=== PATIENT | male | born 1985 | race Caucasian/White ===

== ENCOUNTER 2016-12-26 20:50 | Emergency (ER) | payer OTHER ==
[~2016-12-26] VITALS: Ht 170.2 cm; Wt 61.4 kg
[2016-12-26 21:07] VITALS: BP 118/72; PULSE 80; RESP 22; O2SAT 100
[2016-12-26] MEDS ORDERED: LORazepam 1 mg Tablet PO ONE (21:40)
[2016-12-26 21:56] LABS: BASOPHILS % (AUTO) 0.9 % (0-3); EOSINOPHILS % (AUTO) 6.5 % (0-5); MONOCYTES % (AUTO) 11.7 % (4-12); Mean Corpuscular Hemoglobin 21.3 pg (27.0-35.0); Mean Corpuscular Volume 71.1 fL (81-100); NEUTROPHILS % (AUTO) 64.9 % (40-74); Platelet Count 525 bil/L (150-400)
--- NOTE | 2016-12-26 21:57 | ED.REPORT ---
HPI-Psychiatric Illness Date of Service Dec 26, 2016 ED Provider: Yeison Patten DO The patient is a 31 yo male with PTSD, depression, and anxiety who is brought to the ED by police for suicidal/homocidal ideation. He was at the Crisis Center and refused to follow the rules as well as being difficult. The police was called to ask him to leave. Patient requested a ride to the bus stop, and while he was in the car with the police, he expressed both suicidal and homocidal ideation. He denies any specific plan or mean to carry the thoughts, but would like to go to the hospital for help. On arrival to the ED, patient states that he just feels very frustrated and irritated, and would like psychiatric help. He is only on Hydrozyxine for the anxiety, but it has not been working very well. He has a doctor in [place] but has not seen a psychiatrist. He reports some sleeping issues and stress, but admits to normal energy level and appetite. He denies visual/auditory hallucinations, delusions, psychosis, or sahil. He lives with his family in [place]. Patient admits to suicidal/homocidal ideation 6 months ago, but no suicidal attempt in the past. No previous psych admission. Patient denies any physical complaint. Nursing Notes Stated Complaint: MENTAL HEALTH Chief Complaint: Psychiatric Complaint Nursing Notes Reviewed: Yes Allergies: Coded Allergies: No Known Allergies (Unverified , 12/26/16) General Time Seen by MD: 21:15 Chief Complaint Depressed, Homicidal ideation, Suicidal ideation Hx Obtained From: Patient, Police Onset Occurred: Just prior to arrival Context of Onset: Marijuana use Symptom Duration: Since onset Progression Since Onset: Unchanged Severity: Current: No pain currently Associated with: Reports: Agitation, Anxiety, Depression, Denies: Delusions, Fever, Illicit drug use, Incoherence, Incontinence, Loss of appetite, Paranoia, Violence Pertinent Negative: Pt denies other symptoms Pertinent Negative: Exacerbated by nothing, Relieved by nothing Related History: Reports: Anxiety, Depression, Denies: Decreased sleep, Illicit drug use, Prior homicide attempt(s), Prior suicide attempt(s), Schizophrenia Recent Healthcare: No recent doctor visit, No recent hospitalization Similar Sx Previous: Yes Risk-Psychiatric Illness Suicide Risk Stratification Suicide Risk Factors - Adult: No: Access to firearms, Alcohol use, Close associate suicide, Family Hx of Suicide, Previous attempt, Prior psych admission RF Statements: No risk factors Past Medical History Past Medical History None Past Surgical History None Family History Denies Social History Alcohol Use: Denies alcohol use Drug Use: THC Other Social History: Lives with parents Ambulatory Status Independent Review of Systems Basic Review of Systems Eyes: Vision NL, No discharge ENT: Hearing NL, No pain, No nasal congestion, No pharyngeal pain : No dysuria, No frequency Musculoskeletal: No extremity swelling, No extremity pain, Full range of motion , Joints NL Hematologic: No bleeding, No bruising Endocrine: No cold intolerance, No heat intolerance, No weight gain, No weight loss Allergy / Immune: No allergy Psychiatric: Reports: Agitation, Anxiety, Depression, Homicidal ideation, Stress, Suicidal ideation, Denies: Confusion, Delusional, Hallucinations, auditory, Hallucinations, visual, Hostile, Insomnia Complete sys rev & neg: except as marked. Physical Exam Initial Vital Signs Vital Signs (First) Date Time Temp Pulse Resp B/P Pulse Ox O2 Delivery O2 Flow Rate FiO2 12/26/16 21:07 36.4 80 22 118/72 100 Room Air Initial VS: Reviewed, Vital signs normal Head / Eyes: Atraumatic, Normocephalic, PERRL ENT: Mucous membranes moist (poor dentition), Conjunctiva normal, No scleral icterus Neck: Supple, Non-tender, Full range of motion Respiratory: Breath sounds normal, Clear to auscultation, No respiratory distress Cardiovascular: Regular rate & rhythm, Heart sounds normal, Intact distal pulses Abdomen / GI: Soft, Non-tender, No guarding, No rebound, No distention Back: No CVA tenderness Lymphatic: No lymphadenopathy Extremities: Vascular intact, Neuro intact, No swelling, No tenderness Skin: Warm, Dry, No cyanosis Abnormal Mood/Affect: Positive: Anxious, Depressed, Irritable, Labile Abnormal Thinking / Perception: Positive: Homicidal, no plan, Insight abnormal , Judgment abnormal, Suicidal, no plan, Tangential thinking, Negative: Delusions - grandeur, Delusions - paranoid, Hallucinations, auditory, Hallucinations, visual Poor eye contact Interpretation & Diagnostics Lab Results Interpretation Result Diagram: 12/26/16214612/26/162146 Test 12/26/16 21:29 12/26/16 21:47 Hold Urine Received (Received) White Blood Count 11.3th/mm3 (3.8-10.1) Red Blood Count 4.64mil/mm3 (4.40-5.80) Hemoglobin 9.9g/dL (13.8-17.2) Hematocrit 33.0% (41.0-50.0) Mean Corpuscular Volume 71.1fL (81-100) Mean Corpuscular Hemoglobin 21.3pg (27.0-35.0) Mean Corpuscular Hemoglobin Concent 30.0% (32.0-37.0) Red Cell Distribution Width 19.1% (12.3-15.4) Platelet Count 525bil/L (150-400) Neutrophils (%) (Auto) 64.9% (40-74) Lymphocytes (%) (Auto) 15.8% (14-46) Monocytes (%) (Auto) 11.7% (4-12) Eosinophils (%) (Auto) 6.5% (0-5) Basophils (%) (Auto) 0.9% (0-3) Band Neutrophils % 0% (1-5) Sodium Level 137mEq/L (134-144) Potassium Level 4.0mEq/L (3.5-5.2) Chloride Level 101mEq/L (97-108) Carbon Dioxide Level 24mmol/L (18-29) Blood Urea Nitrogen 20mg/dL (6-20) Creatinine 0.75mg/dL (0.76-1.27) Estimat Glomerular Filtration Rate 131mL/min (>59) Glucose Level 83mg/dL (60-99) Calcium Level 9.8mg/dL (8.5-10.1) Total Bilirubin 0.2mg/dL (0.0-1.2) Aspartate Amino Transf (AST/SGOT) 14U/L (0-50) Alanine Aminotransferase (ALT/SGPT) 12U/L (0-44) Alkaline Phosphatase 83U/L (25-150) Total Protein 6.9g/dL (6.4-8.4) Albumin 3.8g/dL (3.4-5.0) Thyroid Stimulating Hormone (TSH) 2.390uIU/mL (0.450-4.500) Re-Eval/Medical Decision Med Decision/Clinical Course 31 yo male with PTSD, depression, and anxiety who is brought to the ED by police for suicidal/homocidal ideation tonight. He was asked to leave the Crisis Center for being difficult. As patient was escorted to the bus station by the police, he expressed suicidal and homocidal ideations without a specific plan. He voluntarily asked for psychiatric help, thus he was taken to the hospital. We consulted with our addiction social worker, who is unable to evaluate the patient because it is at the end of her shift. Therefore, patient will be observed in the ER overnight and to be evaluated by SW in the morning. Patient agrees with the plan. He was given a dose of Ativan 1mg PO for anxiety. Counseled Regarding: Diagnosis, Lab results, Need for follow-up Discharge & Departure Shift Change Sign-Out Patient Care Transferred: Yes Discussed Complaint(s): Yes Laboratory Evaluation: Back, reviewed by me Response to Therapy: Discussed Impression: Primary Impression: Suicidal ideations Discharge Condition All VS Reviewed: Yes Condition: Stable Referrals: NOPCP (PCP) Attending Statement Active suicidal ideations without a plan. He is here voluntarily. Consulted with our addiction social worker. She is unable to evaluate in place before she has to be off shift. As such we will observe the emergency department overnight. I discussed this with this gentleman and he concurs. I performed a history and physical examination and review the note as written above. Miller Ugalde DO Dec 26, 2016 21:35 Yeison Patten DO Dec 26, 2016 23:44
[2016-12-27 00:55] VITALS: BP 108/60; PULSE 86; RESP 18; O2SAT 100
[2016-12-27 06:25] VITALS: BP 103/65; PULSE 81; RESP 16; O2SAT 100
[2016-12-27 07:02] VITALS: BP 109/64; PULSE 77; RESP 17; O2SAT 99
[2016-12-27] MEDS ORDERED: LORazepam 0.5 mg Tablet PO ONE ×2 (08:40→11:15)
[2016-12-27] MEDS ORDERED: hydrOXYzine Pamoate 25 mg Capsule PO ONE (11:15)
[2016-12-27] MEDS ORDERED: HYDR-656 PO (11:21)
[2016-12-27 11:53] VITALS: BP 113/70; PULSE 101; RESP 14; O2SAT 99
== END 2016-12-27 12:14 | disposition home or self-care (01) ==
LOC: SED 20:50
DX: R45.851 Suicidal ideations (principal); F43.10 Post-traumatic stress disorder, unspecified; F32.9 Major depressive disorder, single episode, unspecified; F41.9 Anxiety disorder, unspecified; Z59.0 Homelessness
CPT/HCPCS: 36415; 80053; 81002; 82075; 84443; 85025; 90791; 99284; Q0177

== ENCOUNTER 2017-01-19 08:15 | Emergency (ER) | payer OTHER ==
[~2017-01-19] VITALS: Ht 170.2 cm; Wt 61.4 kg
[2017-01-19 08:15] VITALS: BP_SYST 115; BP_SYST 118; BP_DIAS 101; BP_DIAS 62; PULSE 73; RESP 20; O2SAT 100
[~2017-01-19 08:15] MED LIST: HYDR-656 PO
--- NOTE | 2017-01-19 08:21 | ED.REPORT ---
HPI-Abd Pain M Under 40 Date of Service Jan 19, 2017 ED Provider: Nitin Serrato DO The pt is a 31 y/o male w/ a hx of a hiatal hernias and ulcers, bipolar disorder , and anxiety presenting to the ED via EMS due to two days of upper abdominal pain. He is also experiencing nausea, dizziness, and black tarry stools. The pt has had black tarry stools for the last two days but "today being the main one ". Denies vomiting. He also wants to discuss his mental health issues. The pt has not taken any of his medications for the last 5 days. He describes being "upset". Was seen on 07/02 for suicidal ideations. Nursing Notes Stated Complaint: ABDOMINAL PAIN Chief Complaint: Male Abdominal Pain Nursing Notes Reviewed: Yes Allergies: Coded Allergies: No Known Allergies (Unverified , 01/19/17) Scheduled Ferrous Sulfate (Ferrous Sulfate) 325 Mg Tablet 325 MG PO DAILY Hydroxyzine HCl (HydrOXYzine Hcl) 50 Mg Tablet 50 MG PO Q4H Mirtazapine (Mirtazapine) 15 Mg Tablet 30 MG PO HS Ondansetron (Ondansetron) 4 Mg Tablet 4 MG PO Q8H Pantoprazole DR (Pantoprazole DR) 40 Mg Tablet.dr 40 MG PO DAILY Sucralfate Susp (Carafate Susp) 1 Gm/10 Ml Oral.susp 1 GM PO QID General Time Seen by MD: 08:19 Chief Complaint Abdominal pain Hx Obtained From: Patient Arrived By: Ambulance Sudden in Onset?: Yes Symptom Duration: 2 days Location: : Abdomen upper Recent Healthcare: No recent hospitalization, Recent doctor visit Similar Sx Previous: Yes Past Medical History Past Medical History Hiatal hernias Ulcers Past Surgical History None Family History Denies Smoking History Never Smoker Social History Alcohol Use: Denies alcohol use Drug Use: THC Other Social History: Lives with parents Ambulatory Status Independent Review of Systems GI: Reports: Abdominal pain, Bloody/tarry stool, Nausea, Denies: Vomiting Neurologic: Reports: Dizziness Physical Exam Initial Vital Signs Vital Signs (First) Date Time Temp Pulse Resp B/P Pulse Ox O2 Delivery O2 Flow Rate FiO2 01/19/17 08:15 37.1 73 20 115/62 100 Room Air Initial VS: Reviewed General/Constitutional: Awake, Alert Respiratory / Chest: Atraumatic, Breath sounds NL Cardiovascular: Heart rate NL, Regular rhythm, Heart sounds NL Abdomen: Atraumatic, Soft, Non-tender Back: Atraumatic, Full range of motion Head / Eyes: Atraumatic, Normocephalic Neurologic: Oriented X3, Speech NL Upper Extremity / MS: Atraumatic, Full range of motion Lower Extremity / Pelvis / MS: Atraumatic, Full range of motion Skin: Atraumatic, Color NL, No rash, Warm, Dry Psychiatric: Not suicidal, Not homicidal Paranoid Interpretation & Diagnostics Lab Results Interpretation Result Diagram: 01/19/17 1020 01/19/17 0851 Test 01/19/17 08:51 01/19/17 09:08 01/19/17 10:05 01/19/17 10:20 White Blood Count 7.3th/mm3 (3.8-10.1) Red Blood Count 4.50mil/mm3 (4.40-5.80) Mean Corpuscular Volume 72.0fL (81-100) Mean Corpuscular Hemoglobin 22.4pg (27.0-35.0) Mean Corpuscular Hemoglobin Concent 31.2% (32.0-37.0) Red Cell Distribution Width 22.0% (12.3-15.4) Platelet Count 375bil/L (150-400) Neutrophils (%) (Auto) 71.5% (40-74) Lymphocytes (%) (Auto) 16.4% (14-46) Monocytes (%) (Auto) 7.5% (4-12) Eosinophils (%) (Auto) 3.8% (0-5) Basophils (%) (Auto) 0.5% (0-3) Sodium Level 138mEq/L (134-144) Potassium Level 3.8mEq/L (3.5-5.2) Chloride Level 101mEq/L (97-108) Carbon Dioxide Level 22mmol/L (18-29) Blood Urea Nitrogen 12mg/dL (6-20) Creatinine 0.70mg/dL (0.76-1.27) Estimat Glomerular Filtration Rate 142mL/min (>59) Glucose Level 107mg/dL (60-99) Calcium Level 9.4mg/dL (8.5-10.1) Total Bilirubin 0.2mg/dL (0.0-1.2) Aspartate Amino Transf (AST/SGOT) 31U/L (0-50) Alanine Aminotransferase (ALT/SGPT) 15U/L (0-44) Alkaline Phosphatase 72U/L (25-150) Total Protein 6.9g/dL (6.4-8.4) Albumin 3.8g/dL (3.4-5.0) Prothrombin Time 10.2sec (8.1-12.5) Prothromb Time International Ratio 0.95ratio Hold Urine Received (Received) Hemoglobin 9.8g/dL (13.8-17.2) Hematocrit 31.4% (41.0-50.0) Re-Eval/Medical Decision Med Decision/Clinical Course No evidence of clinically significant GI bleeding. Patient declined a rectal exam, serial hemoglobins are stable, normal BUN to creatinine ratio, normal vital signs. The patient did however appear to have decompensated mental illness, he continued to be severely paranoid, he became verbally threatening and squared off on more than one occasion. He was given IV Haldol, Ativan, Benadryl space out over time in order to help manage these symptoms. The patient has been resting quietly since. Recommend mental health evaluation once the patient has awoken. Re-Evaluation/Progress #1: Time of Eval: 09:50 Re-Evaluation/Progress Note: Pt left room without his shirt on. He appeared visually upset, squared off as about to start a fight, and stated that eveyone in the ER is rude, nasty, and disgusting. He also refused a rectal exam. Re-Evaluation/Progress #2: Time of Eval: 12:00 Re-Evaluation/Progress Note: Pt rechecked and is sleeping soundly. Counseled Regarding: Diagnosis, Lab results, Need for follow-up, When/why to return to ED Patient Discharge & Departure Primary Impression: Epigastric pain Disposition: Home Discharge Condition All VS Reviewed: Yes Condition: Stable [facility]errals: [facility] Care Transferred to: Dr. Mae Care Transferred at: 15:00 Scribe Attestation Portions of this note were transcribed by Jose M Prince. I, Dr. Serrato personally performed the history, physical exam and medical decision-making; I reviewed and confirmed the accuracy of the information in the transcribed note. Signed by : Stephen Burt, 01/19/17 and 0843. copies to: [facility] Nitin Serrato DO Jan 19, 2017 08:21 Jose M Prince Jan 19, 2017 08:41
[2017-01-19] MEDS ORDERED: 0.9% Sodium Chloride 1,000 ML IV ONE (08:51)
[2017-01-19] MEDS ORDERED: LidocaineVisc 2%:Antacid 1:1 10 mL Syringe PO ONE (08:55)
[2017-01-19] MEDS ORDERED: Famotidine 10 mg/mL 2 mL Inj IVPUSH ONE (08:55)
[2017-01-19] MEDS ORDERED: Haloperidol 5 mg/mL Inj IVPUSH ONE (08:55)
[2017-01-19] MEDS ORDERED: Ondansetron 2 mg/mL 2 mL Inj IVPUSH PRN (08:55)
[2017-01-19 09:06] LABS: BASOPHILS % (AUTO) 0.5 % (0-3); EOSINOPHILS % (AUTO) 3.8 % (0-5); MONOCYTES % (AUTO) 7.5 % (4-12); Mean Corpuscular Hemoglobin 22.4 pg (27.0-35.0); NEUTROPHILS % (AUTO) 71.5 % (40-74); Platelet Count 375 bil/L (150-400)
[2017-01-19 09:33] LABS: INR 0.95 ratio
[2017-01-19] MEDS ORDERED: PANT20T PO (10:04)
[2017-01-19] MEDS ORDERED: haldol PO (10:04)
[2017-01-19] MEDS ORDERED: IRON15TA3 PO (10:04)
[2017-01-19] MEDS ORDERED: PANT40TA3 PO ×2 (10:42→17:07)
[2017-01-19] MEDS ORDERED: FERR-83 PO (10:42)
[2017-01-19] MEDS ORDERED: HYDR50TA76 PO (10:42)
[2017-01-19] MEDS ORDERED: SUCR1ORA2 PO (10:42)
[2017-01-19] MEDS ORDERED: ONDA-53 PO (10:42)
[2017-01-19] MEDS ORDERED: MIRT15TA6 PO (10:42)
[2017-01-19 10:50] VITALS: BP 104/74; PULSE 74; RESP 12; O2SAT 98
[2017-01-19 12:39] VITALS: BP 134/59; PULSE 93; RESP 15; O2SAT 100
[2017-01-19 15:15] VITALS: BP 105/74; PULSE 87; RESP 16; O2SAT 100
[2017-01-19 16:18] VITALS: BP 99/51; PULSE 80; O2SAT 100
[2017-01-19] MEDS ORDERED: MIRT30TA6 PO (17:07)
[2017-01-19 17:14] VITALS: BP 97/59; PULSE 74; O2SAT 98
== END 2017-01-19 17:15 | disposition home or self-care (01) ==
LOC: SED 08:15
DX: R10.13 Epigastric pain (principal); R11.0 Nausea; R42 Dizziness and giddiness; F41.8 Other specified anxiety disorders
CPT/HCPCS: 36415; 80053; 81002; 82075; 85014; 85018; 85025; 85610; 86850; 96361; 96374; 96375; 99285; J1200; J1630; J2060; J2405; J7030

== ENCOUNTER 2017-03-15 08:57 | Emergency (ER) | payer OTHER ==
[~2017-03-15] VITALS: Ht 170.2 cm; Wt 62.0 kg
[~2017-03-15 08:57] MED LIST changes: +FERR-83 PO; -HYDR-656 PO; +HYDR50TA76 PO; +MIRT15TA6 PO; +MIRT30TA6 PO; +ONDA-53 PO; +PANT40TA3 PO; +SUCR1ORA2 PO
[2017-03-15 09:05] VITALS: BP 106/72; PULSE 79; PULSE 9; RESP 16; O2SAT 98
--- NOTE | 2017-03-15 09:07 | ED.REPORT ---
HPI-Psychiatric Illness Date of Service Mar 15, 2017 ED Provider: Germain Loyola MD The pt is a 31 y/o male w/ a hx of PTSD, alcohol syndrome, schizophrenia depression, bipolar disorder and anxiety presenting to the ED via law enforcement due to suicidal ideations. He is also a level 3 sex offender and was [facility]. He states that he has a lot of problems in the head currently and his emotions are getting to him. He was just released from a hospital in [place] 2 days ago but reports lying to the doctors saying he was fine in order to be released. Denies homicidal ideations or hallucinations. Denies recent drug or alcohol use. The pt reports having suicidal ideations which has been getting worse over the last few months with plans to jump off an overpass. The pt was last seen in the ED two and a half months ago for suicidal ideations and two months ago for abdominal pain. According to records the pt lives in [place] but he has brought two large bags of personal belongings with him. He reports taking Seraquel, Depakote, Ativan, and Pertronix for his symptoms but does not feel like they are working. Nursing Notes Stated Complaint: SUICIDAL Chief Complaint: Suicidal ideation Nursing Notes Reviewed: Yes Allergies: Coded Allergies: No Known Allergies (Unverified , 01/19/17) Scheduled Ferrous Sulfate (Ferrous Sulfate) 325 Mg Tablet 325 MG PO DAILY Hydroxyzine HCl (HydrOXYzine Hcl) 50 Mg Tablet 50 MG PO Q4H Mirtazapine (Mirtazapine) 15 Mg Tablet 30 MG PO HS Mirtazapine (Mirtazapine) 30 Mg Tablet 30 MG PO HS Ondansetron (Ondansetron) 4 Mg Tablet 4 MG PO Q8H Pantoprazole DR (Pantoprazole DR) 40 Mg Tablet.dr 40 MG PO DAILY Pantoprazole DR (Pantoprazole DR) 40 Mg Tablet.dr 40 MG PO DAILY Sucralfate Susp (Carafate Susp) 1 Gm/10 Ml Oral.susp 1 GM PO QID General Time Seen by MD: 09:07 Chief Complaint Suicidal ideation Hx Obtained From: Patient Arrived By: Walk-in Onset Occurred: Just prior to arrival Symptom Duration: Since onset Recent Healthcare: Recent doctor visit, Recent hospitalization Similar Sx Previous: Yes Risk-Psychiatric Illness Suicide Risk Stratification Suicide Risk Factors - Adult: No: Access to firearms, Alcohol use, Substance abuse RF Statements: Risk factors reviewed Past Medical History Past Medical History Hiatal hernias Ulcers PTSD Depression alcohol syndrome Bipolar disorder Anxiety Schizophrenia Past Surgical History None Family History Denies Smoking History Never Smoker Social History Level 3 sex offender Alcohol Use: Denies alcohol use Drug Use: THC Other Social History: Lives with parents Ambulatory Status Independent Review of Systems Psychiatric: Reports: Anxiety, Delusional, Suicidal ideation (w/ plan ), Denies: Hallucinations, auditory, Hallucinations, visual, Homicidal ideation Complete sys rev & neg: except as marked. Physical Exam Initial Vital Signs Vital Signs (First) Date Time Temp Pulse Resp B/P Pulse Ox O2 Delivery O2 Flow Rate FiO2 03/15/17 09:05 36.4 79 16 106/72 98 Room Air Initial VS: Reviewed ENT: Mucous membranes moist, Conjunctiva normal, No scleral icterus Neck: Supple, Non-tender, Full range of motion Respiratory: Breath sounds normal, Clear to auscultation, No respiratory distress Cardiovascular: Regular rate & rhythm, Heart sounds normal, Intact distal pulses Extremities: Vascular intact, Neuro intact Skin: Warm, Dry, No cyanosis General/Constitutional: Awake, Alert Neurologic: Oriented X3, No motor deficits Psychiatric: Not homicidal Abnormal Mood/Affect: Positive: Anxious, Fearful, Irritable, Labile, Pressured speech Abnormal Thinking / Perception: Positive: Delusions - paranoid, Insight abnormal, Suicidal, with plan, Negative: Hallucinations, auditory, Hallucinations, visual Head / Eyes: Atraumatic, Normocephalic Interpretation & Diagnostics Lab Results Interpretation Result Diagram: 03/15/17 0944 03/15/17 0944 Test 03/15/17 09:44 White Blood Count 7.5th/mm3 (3.8-10.1) Red Blood Count 4.99mil/mm3 (4.40-5.80) Hemoglobin 12.2g/dL (13.8-17.2) Hematocrit 38.1% (41.0-50.0) Mean Corpuscular Volume 76.4fL (81-100) Mean Corpuscular Hemoglobin 24.4pg (27.0-35.0) Mean Corpuscular Hemoglobin Concent 32.0% (32.0-37.0) Red Cell Distribution Width 23.4% (12.3-15.4) Platelet Count 278bil/L (150-400) Neutrophils (%) (Auto) 74.5% (40-74) Lymphocytes (%) (Auto) 14.7% (14-46) Monocytes (%) (Auto) 8.7% (4-12) Eosinophils (%) (Auto) 0.9% (0-5) Basophils (%) (Auto) 0.7% (0-3) Sodium Level 142mEq/L (134-144) Potassium Level 4.1mEq/L (3.5-5.2) Chloride Level 103mEq/L (97-108) Carbon Dioxide Level 22mmol/L (18-29) Blood Urea Nitrogen 17mg/dL (6-20) Creatinine 0.84mg/dL (0.76-1.27) Estimat Glomerular Filtration Rate 115mL/min (>59) Glucose Level 100mg/dL (60-99) Calcium Level 9.2mg/dL (8.5-10.1) Total Bilirubin 0.2mg/dL (0.0-1.2) Aspartate Amino Transf (AST/SGOT) 39U/L (0-50) Alanine Aminotransferase (ALT/SGPT) 15U/L (0-44) Alkaline Phosphatase 72U/L (25-150) Total Protein 7.0g/dL (6.4-8.4) Albumin 4.1g/dL (3.4-5.0) Thyroid Stimulating Hormone (TSH) 1.680uIU/mL (0.450-4.500) Hold Perez Top Tube Received (Received) Re-Eval/Medical Decision Med Decision/Clinical Course All facilities checked will not accept the patient either because of his sex offender status or because of senses issues. The patient says that if he leaves the department he will kill himself today. Psychiatric consultation requested. Care transferred to Dr. Washington at change of shift. Source of Hx: Old records Re-Evaluation/Progress #1: Time of Eval: 11:54 Re-Evaluation/Progress Note: Rechecked pt who admits to suicidal ideations that have been getting worse over the last 2 months w/ a plan to jump off an overpass. Denies homicidal ideations, or hallucinations. He states that it wouldnt work so good if he was discharged today and would like to be admitted for further help. Re-Evaluation/Progress #2: Time of Eval: 15:01 Re-Evaluation/Progress Note: Pt rechecked. He states that if he is discharged he will kill himself. Re-Evaluation/Progress #3: Time of Eval: 15:39 Re-Evaluation/Progress Note: Pt rechecked and informed him of plan for a psychiatrist to speak to him. Consultation : Referral / Consult Name: Truong Braun MD Consulted With: Psychiatry Call Returned at: 15:30 Mail Clerk Bills: Will see patient Note: Will see the patient before the end of the day Counseled Regarding: Diagnosis, Lab results, Need for admission Discharge & Departure Impression: Primary Impression: Suicidal ideations Discharge Condition All VS Reviewed: Yes Condition: Stable Additional Instructions: Thank for you entrusting us with your care today. You have an appointment with your rn case management, Sivan at 2:00 PM on () at [facility] [address], [phone] Please return to the emergency department if you experience any new or worsening symptoms. Referrals: SKYLER PECK MD (PCP) Care Transferred to: Dr. Willis Care Transferred at: 18:00 Scribe Attestation Portions of this note were transcribed by Jose M Prince. I, Dr. Loyola personally performed the history, physical exam and medical decision-making; I reviewed and confirmed the accuracy of the information in the transcribed note. copies to: SKYLER PECK MD, Kirk H MD Mar 15, 2017 09:07 Jose M Prince Mar 15, 2017 09:24
[2017-03-15] MEDS ORDERED: LORazepam 2 mg Tablet PO ONE (09:25)
[2017-03-15 10:07] LABS: BASOPHILS % (AUTO) 0.7 % (0-3); EOSINOPHILS % (AUTO) 0.9 % (0-5); MONOCYTES % (AUTO) 8.7 % (4-12); Mean Corpuscular Hemoglobin 24.4 pg (27.0-35.0); Mean Corpuscular Volume 76.4 fL (81-100); NEUTROPHILS % (AUTO) 74.5 % (40-74); Platelet Count 278 bil/L (150-400)
[2017-03-15 14:10] VITALS: BP 116/65; PULSE 82; RESP 14; O2SAT 98
[2017-03-15 18:28] VITALS: BP 100/65; PULSE 101; RESP 18; O2SAT 98
[2017-03-15 23:21] VITALS: BP 110/68; PULSE 62; RESP 16; O2SAT 99
[2017-03-16 06:01] VITALS: BP 103/69; PULSE 98; RESP 14; O2SAT 99
[2017-03-16 10:10] VITALS: BP 116/66; PULSE 92; RESP 18; O2SAT 100
[2017-03-16] MEDS ORDERED: Pantoprazole 40 mg ER24 Tablet PO ONE (11:40)
--- NOTE | 2017-03-16 13:59 | CONS ---
[address] [address] CONSULTATION REPORT PATIENT: RACHELLE GOLDBERG : 1985 MR#: [id number] ADMIT: 03/15/2017 JOB ID: [id number] DATE OF SERVICE: 03/16/2017 PSYCHIATRIC CONSULTATION: IDENTIFICATION: The patient is a 31-year-old white male. He is currently homeless. He recently served 10 years of incarceration and has been identified as a level three sexual offender. He has been staying in the [facility]. REASON FOR ADMISSION: Client came to the emergency department complaining of suicidal ideation with a plan to jump off the bridge to kill himself. HISTORY OF PRESENT ILLNESS: I was asked to consult by the emergency department on the patient for suicidal ideation. I met with him for two separate evaluations and reviewed course and records kept by [facility]. I also reviewed his case with social media senior associate, Nida, and with several of the emergency department doctors over the past 48 hours. Client's main issue is homelessness and lack of income. He is becoming so frustrated and sees no way out and is now seeing suicide as a viable option. He is worried that he will walk to the bridge and jump off because he is feeling so frustrated. He describes having bipolar mood disorder and that this has been diagnosed by his outpatient physician. He has been prescribed a combination of Remeron, Depakote and Seroquel for this. He showed no signs of sahil or psychosis. He showed no neurovegetative signs of depression but was very consistent that at this time he is feeling so frustrated and sees no option other than suicide. All the above were made worse by the lack of housing, by poor sleep and by the stress of not having enough money. He is currently presenting with significant emotional liability and mild cognitive impairments. PHYSICAL REVIEW OF SYSTEMS: Client denies difficulty with constitution, cardiac, respiratory, GI or genitourinary systems. He denies medication side effects. PAST MEDICAL HISTORY: MEDICATIONS: 1. Remeron 30 h.s. 2. Depakote 500 h.s. 3. Seroquel 200 h.s. ALLERGIES: None. ILLNESSES: alcohol syndrome. FAMILY MEDICAL HISTORY: Unknown. PAST PSYCHIATRIC HISTORY: Numerous hospitalizations. Client describes being at [facility] and admitted to their psych unit. Client describes being recently admitted to [facility], discharging on March 14 presenting to our unit to our ED on March 15, 2017. PSYCHOSOCIAL: Born in [place], [place]. Stated he dropped out of school in the 11th grade. HISTORY OF TRAUMA: Client denies. DRUG AND ALCOHOL: Client states he uses THC but denies other drug use. LETHALITY: Client states he tried to hang himself earlier this month and that a friend let him down. He stated he was intent on killing himself. He states he is suicidal now. Plans to jump off an overpass onto the freeway. RELATIONSHIP: Single. BAHAI: None. LEGAL: Ten years of incarceration level three sex offender. PHYSICAL EXAMINATION: Vital signs within normal limits. Physical examination reviewed from the ED and essentially normal. LABORATORIES: CBC, electrolytes, thyroid normal. UDS negative. MENTAL STATUS: Client dressed in hospital scrubs. Sitting calmly on his bed. He appeared tense but was well hydrated and well nourished. Behavior was restless and defiant. Attitude was suspicious. Speech: Rapid rate and pressured. Mood dysphoric. Affect congruent, labile. Thought process: Client is able to relate a coherent history. His thought process is concrete. He is able to appreciate simple but not complex abstractions. He did not appear to be responding to internal stimuli. His thought content was significant for themes of suicide and a plan to jump if he is not able to find emotional relief, food and prison. He denied homicidal ideation. He denied auditory hallucinations. He is alert and oriented to person, place and date. His immediate, more short and long-term memory intact. Attention and concentration was mildly impaired. Insight and judgment poor. Impulse control impaired. He is having a difficult time handling impulses of fear, hunger and sadness. Reality testing intact. Competence to handle current stressors is currently being overwhelmed. IMPRESSION: The patient is a 31-year-old male who has been incarcerated and has been categorized as a level three sex offender. Since getting out of [facility], he has had a difficult time establishing work and a living situation. He has burned many of his bridges with his family and currently feels that he is so frustrated with living on the street that he is planning to kill himself rather than continue on. He repeated three times that he was going to jump off the bridge and was unable to participate in any kind of safety planning with myself or the emergency social media senior associate, iNda. No signs of psychosis, sahil or neurovegetative signs of depression. Positive suicidal ideation. Client felt that the combination of Remeron, Depakote and Seroquel has helped him in the past. DIAGNOSIS: AXIS I Depression unspecified, rule out malingering, rule out bipolar mood disorder, depressed with suicidal ideation. AXIS II Antisocial traits. AXIS III alcohol syndrome. AXIS IV Severe. AXIS V Current global assessment of functioning equal to 35. PLAN: 1. Recommend client be continued on medications Remeron 30 h.s., Depakote 500 h.s. and Seroquel 200 h.s. 2. Recommend client followup with [facility] for outpatient medication management and therapy once client is able to safety plan. 3. Would not discharge from the ED until client can participate in safety planning and that he is no longer eminently suicidal. The social media senior associate, Nida, has called for many different hospitals trying to get him a hospital bed. At present, there have been no beds offered and will continue to hold him in the ED and continue to treat him. I will continue to see him on a daily basis.
[2017-03-16 15:06] VITALS: BP 114/69; PULSE 71; RESP 20; O2SAT 96
== END 2017-03-16 16:06 ==
LOC: SED 08:57
DX: R45.851 Suicidal ideations (principal); F43.10 Post-traumatic stress disorder, unspecified; F41.9 Anxiety disorder, unspecified; F25.1 Schizoaffective disorder, depressive type; Z65.3 Problems related to other legal circumstances
CPT/HCPCS: 36415; 80053; 82075; 84443; 85025; 99284; Q0177

== ENCOUNTER 2017-03-28 15:52 | Emergency (ER) | payer MEDICAID, OTHER ==
[~2017-03-28] VITALS: Ht 167.6 cm; Wt 61.4 kg
--- NOTE | 2017-03-28 16:14 | ED.REPORT ---
HPI-Psychiatric Illness Date of Service Mar 28, 2017 ED Provider: Med Rosales MD The patient is a 31 year old male with a history of PTSD, alcohol syndrome, schizophrenia depression, bipolar disorder and anxiety who presents to the ED via [facility] with suicidal ideation that began just prior to arrival. The patient reportedly contacted police stating that he was feeling actively suicidal and homicidal. Per police report, patient was threatening to jump onto the train tracks. He is currently requesting to meet with [facility] for a psych hold and asked to be placed in handcuffs. Patient was recently placed at a Crisis center in [place] for 3 days but left prior to scheduled discharge. Patient was last seen in the ED on 03/15 for suicidal ideation and was discharged in stable condition after suicidal ideation resolved. The patient is a difficult historian. Nursing Notes Stated Complaint: SUICIDAL IDEATION Chief Complaint: Psychiatric Complaint Nursing Notes Reviewed: Yes Allergies: Coded Allergies: No Known Allergies (Unverified , 01/19/17) Scheduled Ferrous Sulfate (Ferrous Sulfate) 325 Mg Tablet 325 MG PO DAILY Hydroxyzine HCl (HydrOXYzine Hcl) 50 Mg Tablet 50 MG PO Q4H Mirtazapine (Mirtazapine) 15 Mg Tablet 30 MG PO HS Mirtazapine (Mirtazapine) 30 Mg Tablet 30 MG PO HS Ondansetron (Ondansetron) 4 Mg Tablet 4 MG PO Q8H Pantoprazole DR (Pantoprazole DR) 40 Mg Tablet.dr 40 MG PO DAILY Pantoprazole DR (Pantoprazole DR) 40 Mg Tablet.dr 40 MG PO DAILY Sucralfate Susp (Carafate Susp) 1 Gm/10 Ml Oral.susp 1 GM PO QID General Time Seen by MD: 16:07 Chief Complaint Suicidal ideation Hx Obtained From: Patient Arrived By: Police Onset Occurred: Just prior to arrival Symptom Duration: Since onset Progression Since Onset: Unchanged Pertinent Negative: Pt denies other symptoms Recent Healthcare: No recent hospitalization, Recent doctor visit Similar Sx Previous: Yes Risk-Psychiatric Illness Suicide Risk Stratification RF Statements: Risk factors reviewed Past Medical History Past Medical History Hiatal hernias Ulcers PTSD Depression alcohol syndrome Bipolar disorder Anxiety Schizophrenia Past Surgical History None reported. Family History Denies Smoking History Never Smoker Social History Level 3 sex offender Alcohol Use: Denies alcohol use Drug Use: THC Other Social History: Lives with parents Ambulatory Status Independent Review of Systems Psychiatric: Reports: Suicidal ideation Complete sys rev & neg: except as marked. Physical Exam Initial Vital Signs Vital Signs (First) Date Time Temp Pulse Resp B/P Pulse Ox O2 Delivery O2 Flow Rate FiO2 03/28/17 16:39 36.8 98 18 100 Room Air 03/28/17 19:00 126/82 Initial VS: Reviewed Extremities: Vascular intact, Neuro intact, No swelling, No tenderness General/Constitutional: Awake, Alert Behavior: Positive: Aggressive, Uncooperative GENERAL: Asking to have handcuffs removed Refuses to provide further HPI Neurologic: Oriented X3, Speech NL, No motor deficits, No sensory deficits Abnormal Thinking / Perception: Positive: Homicidal, no plan (Reported to Police), Suicidal, no plan (Reported to Police) Aggressive behavior and posture Head / Eyes: Atraumatic, Normocephalic Respiratory / Chest: Atraumatic, No respiratory distress Cardiovascular: Peripheral circulation NL, Pulses = bilaterally Abdomen: Atraumatic Skin: Atraumatic, Color NL Neck: Atraumatic, Supple, Full range of motion Back: Atraumatic Interpretation & Diagnostics Lab Results Interpretation Result Diagram: 03/28/17193003/28/171930 Test 03/28/17 19:31 White Blood Count 8.7th/mm3 (3.8-10.1) Red Blood Count 4.81mil/mm3 (4.40-5.80) Hemoglobin 11.5g/dL (13.8-17.2) Hematocrit 36.3% (41.0-50.0) Mean Corpuscular Volume 75.5fL (81-100) Mean Corpuscular Hemoglobin 23.9pg (27.0-35.0) Mean Corpuscular Hemoglobin Concent 31.7% (32.0-37.0) Red Cell Distribution Width 21.1% (12.3-15.4) Platelet Count 405bil/L (150-400) Neutrophils (%) (Auto) 66.4% (40-74) Lymphocytes (%) (Auto) 20.0% (14-46) Monocytes (%) (Auto) 9.2% (4-12) Eosinophils (%) (Auto) 3.5% (0-5) Basophils (%) (Auto) 0.7% (0-3) Sodium Level 140mEq/L (134-144) Potassium Level 4.0mEq/L (3.5-5.2) Chloride Level 102mEq/L (97-108) Carbon Dioxide Level 22mmol/L (18-29) Blood Urea Nitrogen 13mg/dL (6-20) Creatinine 0.82mg/dL (0.76-1.27) Estimat Glomerular Filtration Rate 118mL/min (>59) Glucose Level 91mg/dL (60-99) Calcium Level 9.2mg/dL (8.5-10.1) Total Bilirubin 0.2mg/dL (0.0-1.2) Aspartate Amino Transf (AST/SGOT) 13U/L (0-50) Alanine Aminotransferase (ALT/SGPT) 11U/L (0-44) Alkaline Phosphatase 67U/L (25-150) Total Protein 7.2g/dL (6.4-8.4) Albumin 3.9g/dL (3.4-5.0) Thyroid Stimulating Hormone (TSH) 1.990uIU/mL (0.450-4.500) Hold Perez Top Tube Received (Received) Re-Eval/Medical Decision Med Decision/Clinical Course The patient is a 31 year old male with a history of PTSD, alcohol syndrome, schizophrenia depression, bipolar disorder and anxiety who presents to the ED via [facility] with suicidal ideation that began just prior to arrival. The patient reportedly contacted police stating that he was feeling actively suicidal and homicidal. Per police report, patient was threatening to jump onto the train tracks. Here in the emergency department the patient as somewhat agitated and aggressive. He was repeatedly asking to be removed from handcuffs though when this was done he was noted to become aggressive with staff punching mabry and hitting his head against the window. Therefore we administered Haldol, Benadryl and Ativan intramuscularly with good effect. Laboratory studies were obtained as below: Alcohol negative Urine drug screen negative CBC unremarkable CMP unremarkable TSH within normal limits Patient was seen and evaluated by her emergency department social science professor and reported ongoing suicidal and homicidal ideation. The patient was seen and evaluated by the [facility] and he is placed on psychiatric hold. Due to his status as sex offender it is unlikely that we will be able to find placement for him at a psychiatric facility this evening. At this time, I see no evidence of an acute medical etiology of his behavior today. The patient has been signed out to the oncoming physician for further management. He is stable at time of sign out. Re-Evaluation/Progress #1: Time of Eval: 20:07 Re-Evaluation/Progress Note: Face to face eval. Patient is not in any acute distress. Re-Evaluation/Progress #2: Time of Eval: 22:40 Re-Evaluation/Progress Note: Patient is detained to the ED. After becoming agitated, the patient is given B52. Consultation : Consulted With: student worker Call Returned at: 19:52 Outreach Counselor: Agrees with eval, Agrees with plan Note: I agree with the [facility] plan to consult with DM to discuss treatment plan and potential placement. Counseled Regarding: Diagnosis, Lab results Discharge & Departure Shift Change Sign-Out Patient Care Transferred: Yes Discussed Complaint(s): Yes Laboratory Evaluation: Lab evaluation discussed Additonal Information: Dr. Syed Impression: Primary Impression: Suicidal ideations Additional Impressions: Agitation Combative behavior Homicidal ideation Discharge Condition All VS Reviewed: Yes Condition: Stable Referrals: SKYLER PECK MD (PCP) Care Transferred to: Dr. Syed Care Transferred at: 00:38 Crit Care Except Billable Proc Time Spent: 30-74 minutes Services Performed: Patient management by me, Time spent at bedside, Reviewing test results, Reviewing imaging, Discussing patient care, Documentation in record Critical Care Notes: Management of agitation, combative behavior administration of Haldol/Ativan Scribe Attestation Portions of this note were transcribed by Daniela Magana. I, Dr. Rosales, personally performed the history, physical exam and medical decision-making; I reviewed and confirmed the accuracy of the information in the transcribed note. Signed by: Daniela Magana, 03/28/17. copies to: SKYLER PECK MD, Beck O MD Mar 28, 2017 16:14 DANIELA MAGANA Mar 28, 2017 16:19
[2017-03-28 16:39] VITALS: PULSE 98; RESP 18; O2SAT 100
[2017-03-28 19:00] VITALS: BP 126/82; PULSE 82; RESP 18; O2SAT 98
[2017-03-28 19:42] LABS: BASOPHILS % (AUTO) 0.7 % (0-3); EOSINOPHILS % (AUTO) 3.5 % (0-5); MONOCYTES % (AUTO) 9.2 % (4-12); Mean Corpuscular Hemoglobin 23.9 pg (27.0-35.0); Mean Corpuscular Volume 75.5 fL (81-100); NEUTROPHILS % (AUTO) 66.4 % (40-74); Platelet Count 405 bil/L (150-400)
[2017-03-28] MEDS ORDERED: Haloperidol 5 mg/mL Inj IM PRN (22:45)
[2017-03-29 06:09] VITALS: BP 101/63; PULSE 93; RESP 21; O2SAT 99
[2017-03-29] MEDS ORDERED: MIRT30TA PO (10:05)
[2017-03-29] MEDS ORDERED: DIVA500T14 PO (10:05)
[2017-03-29] MEDS ORDERED: QUET200T PO (10:05)
[2017-03-29] MEDS: Pantoprazole 40 mg ER24 Tablet PO SCH (10:45)
[2017-03-29] MEDS: Sucralfate 1,000 mg Tablet PO SCH ×3 (10:45→17:00)
[2017-03-29 15:00] VITALS: BP 121/65; PULSE 92; O2SAT 100
--- NOTE | 2017-03-29 16:32 | CONS ---
[address] [address] CONSULTATION REPORT PATIENT: RACHELLE GOLDBERG : 1985 MR#: [id number] ADMIT: 03/28/2017 JOB ID: [id number] DATE OF SERVICE: 03/29/2017 EMERGENCY DEPARTMENT PSYCHIATRIC CONSULTATION: IDENTIFICATION: The patient is a 31-year-old white male. He is currently homeless. Had recently been incarcerated for 10 years and has been identified as a level 3 sexual offender. He has been staying in the [facility]. REASON FOR ADMISSION: Client was discharged from [facility] crisis triage on March 28 a.m. and came to [place], called 911 and told the police that he was suicidal/homicidal and was brought to the ED for evaluation. HISTORY OF PRESENT ILLNESS: I recently evaluated the patient on March 15, 2017. Please see my consultation at that time. HISTORY OF PRESENT ILLNESS: I was asked to consult by the emergency department on the patient for suicidal and homicidal ideation. I met with him in a one-to-one session and reviewed course and records kept by [facility]. I also reviewed his case with the emergency department physician and social work team. Client has had multiple different emergency department visits at [facility] in [place], [facility] [place] and [facility]. His main issue is homelessness and lack of income. He becomes so frustrated, sees no way out and sees suicide as a viable option. He was quite angry during my interaction with him because he only wanted to be admitted to our unit. Due to the vulnerability of our clients on the unit, this is not a possibility and he needs to be treated in an emergency department or transferred to another facility. This infuriated him and he stated that he will jump off a bridge if he is let go today. He had been detained on a 72 hour involuntary treatment hold by Department of [facility] for similar statements and behavior. He states he has bipolar disorder but his main diagnosis to me appears to be generalized anxiety disorder and PTSD. He also has borderline personality traits. He had been prescribed Depakote, Remeron and Seroquel but has not been taking any of his medication. He showed no signs of sahil or psychosis during my evaluation. He showed no neurovegetative signs of depression. Rather he was very frustrated and is seeing no other options than suicide. All the above symptoms are made worse by lack of housing, by poor sleep and by not having enough money. He is currently presenting with significant emotional lability and mild cognitive impairments. REVIEW OF SYSTEMS: Client refuses to respond to questions. PAST PSYCHIATRIC HISTORY/MEDICATIONS: The client has been refused all medications since discharge on the . ALLERGIES: None. ILLNESSES: alcohol syndrome per chart review. FAMILY MEDICAL HISTORY: Unknown. PAST PSYCHIATRIC HISTORY: Numerous hospitalizations on inpatient units, [facility] [place], [facility] in [place] and [facility] [place]. He was recently discharged from [facility] crisis triage on March 28 a.m. and was in our ED by March 28 p.m. PSYCHOSOCIAL: Born in [place], [place]. Stated he dropped out of school in the 11th grade. 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 DRUG AND ALCOHOL: Client states he uses THC but nothing else. His urine tox was negative. LETHALITY: Client states he tried to hang himself earlier in the month and that a friend let him down. His description was not very convincing. He stated he was intent on killing himself and states I am suicidal now and he plans to jump off the overpass into the freeway. RELATIONSHIP: Single. MORMON: None. LEGAL HISTORY: Ten years of incarceration level 3 sex offender. PHYSICAL EXAMINATION: Vital signs within normal limits. Normal gait. Normal balance. LABORATORIES: CBC, electrolytes, thyroid normal. UDS negative. MENTAL STATUS: Client sitting on the ground in the doorway of his hospital room. He appeared tense but well hydrated and well nourished. His behavior was restless and defiant. Attitude was suspicious. Speech rapid rate, pressured. Mood dysphoric. Affect congruent and labile. Thought process: Client able to relate a coherent history. Thought process is concrete. He is able to appreciate simple but not complex abstractions. He did not appear to be responding to internal stimuli. His thought content was significant for themes of suicide and a plan to jump if he is not able to find emotional relief, food and snf. He denies homicidal ideation. He denied auditory hallucinations. He refused to participate in orientation, memory or judgment questions. His impulse control appears impaired. Insight and judgment poor. Reality testing intact. Competence to handle current stressors is currently being overwhelmed. IMPRESSION: A 31-year-old white male, who has been incarcerated and categorized as a level 3 sex offender. Since getting out of retirement, he has had a difficult time establishing work, a living situation and a viable social community. He has burned many of his bridges with family due to his impulsive anger outbursts and continues to feel a frustration with living on the streets. He is planning on killing himself rather than remaining homeless. He repeated that he is still significantly feeling suicidal and needs care. No signs of psychosis, sahil or neurovegetative signs of depression. Positive suicidal ideation. Client has felt that the combination of Remeron, Depakote and Seroquel has helped him in the past. DIAGNOSIS: AXIS I Depression, unspecified, rule out malingering, rule out bipolar motor disorder, rule out adjustment disorder with depression, rule out posttraumatic stress disorder. AXIS II Antisocial traits. AXIS III alcohol syndrome. AXIS IV Severe. AXIS V Current global assessment of functioning equal to 35. PLAN: Client is on a 72 hour involuntary treatment hold. Will hold him in the ED until a bed can be made or he can be safely dispoed out. Recommend continue Remeron 30 h.s. and Seroquel 200 t.i.d. Would discontinue Depakote. Recommend client work on developing a safety plan and followup with outpatient mental health. Client did not follow up with any of the appointments we set up for him last time. He did not take any medications. I would not discharge him from the ED until he can participate in safety planning and is no longer suicidal. Our group social worker, Nida, is working on different hospital options as well. Thank you for a very interesting consultation.
[2017-03-29 20:20] VITALS: BP 114/66; PULSE 66; RESP 16; O2SAT 100
[2017-03-30 07:01] VITALS: BP 113/68; PULSE 74; RESP 18; O2SAT 99
[2017-03-30] MEDS: Sucralfate 1,000 mg Tablet PO SCH ×3 (07:30→17:00)
[2017-03-30 13:12] VITALS: BP 140/78; PULSE 90; RESP 20; O2SAT 98
[2017-03-30] MEDS: Pantoprazole 40 mg ER24 Tablet PO SCH (13:42)
--- NOTE | 2017-03-30 13:49 | PCM.PNPSY ---
Subjective Date of Service Mar 30, 2017 Subjective I met w Demetrius for a 1 to 1 session. I reviewed his symptom complaints and the ER staff who has been supervising him. The intensity of his suicidal ideation has decreased and he denies HI. He is demanding admission to our psyc unit and stating he will jump of the bridge if we do not. I had the strong feeling that he was holding himself hostage w the threat of jumping in order to secure an inpt bed. He is at risk for suicide and at this time due to his level of frustration, his refusal to take medications and his fear of being homeless, I believe he is at risk today for suicide if discharged. This could change if he takes meds or begins to engage staff in safety planning. At this moment he is not participating and is doubling down on his suicide intent. Current Medications Current Medications Nicotine 1 patch ONCE ONCE TOPICAL Last administered on 03/29/17 00:55; Admin Dose 1 PATCH; Start 03/29/17 at 00:55; Stop 03/29/17 at 00:56; Status DC Nicotine 1 patch ONCE ONCE TOPICAL Last administered on 03/29/17 02:19; Admin Dose 1 PATCH; Start 03/29/17 at 02:10; Stop 03/29/17 at 02:11; Status DC Nicotine 1 patch ONCE ONCE TOPICAL Last administered on 03/29/17 17:06; Admin Dose 1 PATCH; Start 03/29/17 at 17:00; Stop 03/29/17 at 17:01; Status DC Nicotine 1 patch ONCE ONCE TOPICAL Last administered on 03/30/17 03:52; Admin Dose 1 PATCH; Start 03/30/17 at 02:55; Stop 03/30/17 at 02:56; Status DC Mental Status Exam Vital Signs Vital Signs Date Time Temp Pulse Resp B/P Pulse Ox O2 Delivery O2 Flow Rate FiO2 03/30/17 13:12 36.5 90 20 140/78 98 Room Air 03/30/17 07:01 74 18 113/68 99 Room Air Appearance: Unkept Attitude: Uncooperative Behavior: Distractible Affect: Other (angry frustrated, demanding) Mood: Irritable, Dysthymic Thought Process/Associations: Goal Directed Speech Production: Normal Speech Rate: Normal Speech Articulation: Normal Thought Content: Negativistic Danger to Self/Suicidal Ideati: Passive, Plan, Intent Danger to Others: None Consciousness: Alert Orientation: Unable to assess Memory: Untestable Estimate Intellectual Function: Unable to assess Insight: Limited Judgement: Poor Result Diagram: 03/28/17193003/28/171930 Mental Health Plan Demetrius is a 31-year-old white male, who has been incarcerated and categorized as a level 3 sex offender. Since getting out of [facility] (10 years), he has had a difficult time establishing work, a living situation and a viable social community. He has burned many of his bridges with family due to his impulsive anger outbursts and continues to feel a frustration with living on the streets. He is stating he would rather kill himself than remaining homeless. He repeated that he is stillat risk for suicide if he is not admitted to a hospital bed. He has no signs of psychosis, sahil or neurovegetative signs of depression. Positive suicidal ideation. Client has felt that the combination of Remeron, Depakote and Seroquel has helped him in the past but since coming to the ER has refused scheduled meds. The intensity of his suicidal ideation has decreased and he denies HI. He is demanding admission to our psyc unit and stating he will jump of the bridge if we do not. I had the strong feeling that he was holding himself hostage w the threat of jumping in order to secure an inpt bed. He is at risk for suicide and at this time due to his level of frustration, his refusal to take medications and his fear of being homeless, I believe he is at risk today for suicide if discharged. This could change if he takes meds or begins to engage staff in safety planning. At this moment he is not participating and is doubling down on his suicide intent. [place] AXIS I Depression, unspecified, rule out malingering, rule out bipolar motor disorder, rule out adjustment disorder with depression, rule out posttraumatic stress disorder. AXIS II Antisocial traits. AXIS III alcohol syndrome. AXIS IV Severe. AXIS V Current global assessment of functioning equal to 35. Treatments Patient is being provided with a high degree of safety through our ED staff and seclusion room. I am focusing on helping him : 1developing improved coping skills and identifying stressors that may have led to current episode. 2Provide low-stimulation environment 3Assess degree of lability of affect and impulse control 4Complete safety plan 5 Decrease frequency of relapse and need for re-hospitalization 6 Denies thoughts of harm to self and/or others 7Establish a consistent sleep pattern 8Medication effective in stabilization of mood and/or thought process 9 Reduce the risk of imminent harm to self and/or others by providing a safe environment 10Tolerates medication without side effects Patient will be on the following psychiatric medications: Remeron 30 h.s. and Seroquel 200 t.i.d. (pt has been refusing) Patient's legal status Patient is on a 72 involuntary treatment hold. 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
[2017-03-30] MEDS ORDERED: LORazepam 2 mg Tablet PO ONE (17:25)
[2017-03-30 17:54] VITALS: BP 110/75; PULSE 100; RESP 18; O2SAT 98
[2017-03-30 23:40] VITALS: BP 93/66; PULSE 99; RESP 20; O2SAT 96
[2017-03-31 04:30] VITALS: BP 107/78; PULSE 93; RESP 18; O2SAT 100
[2017-03-31] MEDS: Pantoprazole 40 mg ER24 Tablet PO SCH (07:30)
[2017-03-31] MEDS: Sucralfate 1,000 mg Tablet PO SCH (07:30)
--- NOTE | 2017-03-31 11:26 | PCM.PNPSY ---
Subjective Date of Service Mar 31, 2017 Subjective I spoke with Nida the ER social media developer on 03/30/2017 p.m. She had developed a safety plan with this patient which included disposal was mother's home, agreements about medications and attending follow-up care, and agreements to call the crisis center or return to ER if he has a return of either suicidal or homicidal ideation. At the time they worked out this plan she had made a therapeutic alliance with him and he was calm and agreeable to this plan. With this information and this plan I agreed to drop the 72 hour involuntary treatment hold and to have client follow-up with the outpatient plan. Demetrius is a 31-year-old white male, who has been incarcerated and categorized as a level 3 sex offender. Since getting out of group home, he has had a difficult time establishing work, a living situation and a viable social community. He has burned many of his bridges with family due to his impulsive anger outbursts and continues to feel a frustration with living on the streets. He had been planning on killing himself rather than remaining homeless. He stated to the social media developer that he is no longer feeling suicidal and is requesting discharge to outpatient care. She reported that he had No signs of psychosis, sahil or neurovegetative signs of depression. Denies suicidal ideation. Client has felt that the combination of Remeron, Depakote and Seroquel has helped him in the past and he will be discharged on Remeron and Seroquel. I encouraged patient to consider Depakote with his outpatient team.. DIAGNOSIS: AXIS I Depression, unspecified, rule out malingering, rule out bipolar motor disorder, rule out adjustment disorder with depression, rule out posttraumatic stress disorder. AXIS II Antisocial traits. AXIS III alcohol syndrome. AXIS IV Severe. AXIS V Current global assessment of functioning equal to 40 Current Medications Stop talking this Current Medications Lorazepam 2 mg ONCE ONCE PO Last administered on 03/30/17 17:37; Admin Dose 2 MG; Start 03/30/17 at 17:25; Stop 03/30/17 at 17:26; Status DC Nicotine 1 patch ONCE ONCE TOPICAL Last administered on 03/29/17 17:06; Admin Dose 1 PATCH; Start 03/29/17 at 17:00; Stop 03/29/17 at 17:01; Status DC Nicotine 1 patch ONCE ONCE TOPICAL Last administered on 03/30/17t 03:52; Admin Dose 1 PATCH; Start 03/30/17 at 02:55; Stop 03/30/17 at 02:56; Status DC Mental Status Exam Vital Signs Vital Signs Date Time Temp Pulse Resp B/P Pulse Ox O2 Delivery O2 Flow Rate FiO2 03/31/17 04:30 36.6 93 18 107/78 100 Room Air Result Diagram: 03/28/17193003/28/171930 Truong Bruan MD Mar 31, 2017 11:26 Speech Rate: Normal Speech Articulation: Normal Thought Content: Negativistic Danger to Self/Suicidal Ideati: Passive, Plan, Intent Danger to Others: None Consciousness: Alert Orientation: Unable to assess Memory: Untestable Estimate Intellectual Function: Unable to assess Insight: Limited Judgement: Poor Result Diagram: 03/28/17193003/28/171930 Mental Health Plan Demetrius is a 31-year-old white male, who has been incarcerated and categorized as a level 3 sex offender. Since getting out of group home (10 years), he has had a difficult time establishing work, a living situation and a viable social community. He has burned many of his bridges with family due to his impulsive anger outbursts and continues to feel a frustration with living on the streets. He is stating he would rather kill himself than remaining homeless. He repeated that he is stillat risk for suicide if he is not admitted to a hospital bed. He has no signs of psychosis, sahil or neurovegetative signs of depression. Positive suicidal ideation. Client has felt that the combination of Remeron, Depakote and Seroquel has helped him in the past but since coming to the ER has refused scheduled meds. The intensity of his suicidal ideation has decreased and he denies HI. He is demanding admission to our psyc unit and stating he will jump of the bridge if we do not. I had the strong feeling that he was holding himself hostage w the threat of jumping in order to secure an inpt bed. He is at risk for suicide and at this time due to his level of frustration, his refusal to take medications and his fear of being homeless, I believe he is at risk today for suicide if discharged. This could change if he takes meds or begins to engage staff in safety planning. At this moment he is not participating and is doubling down on his suicide intent. [place] AXIS I Depression, unspecified, rule out malingering, rule out bipolar motor disorder, rule out adjustment disorder with depression, rule out posttraumatic stress disorder. AXIS II Antisocial traits. AXIS III alcohol syndrome. AXIS IV Severe. AXIS V Current global assessment of functioning equal to 35. Treatments Patient is being provided with a high degree of safety through our ED staff and seclusion room. I am focusing on helping him : 1developing improved coping skills and identifying stressors that may have led to current episode. 2Provide low-stimulation environment 3Assess degree of lability of affect and impulse control 4Complete safety plan 5 Decrease frequency of relapse and need for re-hospitalization 6 Denies thoughts of harm to self and/or others 7Establish a consistent sleep pattern 8Medication effective in stabilization of mood and/or thought process 9 Reduce the risk of imminent harm to self and/or others by providing a safe environment 10Tolerates medication without side effects Patient will be on the following psychiatric medications: Remeron 30 h.s. and Seroquel 200 t.i.d. (pt has been refusing) Patient's legal status Patient is on a 72 involuntary treatment hold. 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
[2017-03-31] MEDS ORDERED: QUET200T PO (13:34)
--- NOTE | 2017-03-31 13:42 | PCM.DIMED ---
Discharge Instructions Date of Service Mar 31, 2017 Dates of Hospitalization Discharge Diagnosis Discharge Diagnosis AXIS I Depression, unspecified, rule out malingering, rule out adjustment disorder with depression rule out posttraumatic stress disorder. AXIS II Antisocial traits. AXIS III alcohol syndrome. AXIS IV Severe. AXIS V Current global assessment of functioning equal to 40. Medication Instructions Additional med instructions I Strongly encouraged patient to follow up with outpatient care: 1-Recommended patient takes medication as prescribed and not alter this unless under the direct care of a provider. 2-Recommend client refrain from recreational drugs and alcohol while taking psychiatric medications. 3-Recommend client start a 12 step program to deal with issues of addiction. 4-Recommend patient attempt to find a therapist or group to deal with impulse control and interpersonal relationship conflicts Diet Discharge Diet: No restrictions Activity Discharge Activity: No restrictions Call your provider Call your provider for: Fever or Chills, Shortness of breath Patient Instructions Follow-up plan ER social security specialist Carmen arranged to refer [facility] to call patient for a safety check on Monday a.m. Patient to call [facility] on Monday for 24 hour intake on Monday for case management therapy and medication management. Follow-up with PCP in: 2 weeks Truong Braun MD Mar 31, 2017 13:42
--- NOTE | 2017-03-31 17:53 | NUR ---
ED CLIENT EXPERIENCE CONSULTANT Note D/A: Per Psych MD, pt hold is being lifted and pt is being discharged back into the community. Per Psych recommendations and request, CLIENT EXPERIENCE CONSULTANT scheduled a follow up appointment for Monday04/02/2017 with his mental health clinician Radha Rand at 2:30p.m. Pt was notified of this and was provided with the appointment information printed out in bold letters attached to community resource information and crisis Line. Pt encouraged to come back to the ED if he begins to feel unsafe or experiences suicidal ideation again. Pt requested a taxi through his Medicaid transport benefit to [facility] in [facility] as he is not welcomed back to his parents home. Taxi request sent in and pt was scheduled to be picked up at 3:30p.m. this afternoon. Pt denies any other needs and feels safe discharging today. , RN, and pt all updated and agreeable to plan. P: Pt is being released and discharged today with a follow up appointment on Monday04/03/2017 at 2:30p.m. with his clinician with [facility]. Pt being discharged via Medicaid transportation. Appointment information, crisis line number and community resource information provided. All updated and agreeable to plan. SHEEBA Siu
--- NOTE | 2017-04-01 06:16 | DIS ---
[address] [address] DISCHARGE SUMMARY PATIENT: RACHELLE GOLDBERG : 1985 MR#: [id number] ADMIT: 03/28/2017 JOB ID: [id number] DIS: 03/31/2017 DATE OF ADMISSION: 03/28/2017 DATE OF DISCHARGE: 03/31/2017 DISCHARGE SUMMARY FOR EMERGENCY DEPARTMENT: IDENTIFICATION: The patient is a 31-year-old, white male, currently homeless. He has served recent 10 year long term term and has been labeled as a level three sexual offender. He has been staying in the [facility]. REASON FOR ADMISSION: Client discharge from [facility] Crisis Triage 9:12 a.m. and came to [place]. Called 911 and told the police he was suicidal/homicidal and brought to the ER for evaluation. Client detained on a 72 hour involuntary treatment. hold after told that he would not be admitted to the [facility]. SUMMARY OF PRESENT ILLNESS: The patient is a 31-year-old, incarcerated and categorized as a level three sex offender, currently has got out of long term and has been having a difficult time establishing work, a living situation and a viable social community. He has burned many of his social bridges with family and friends due to impulsive anger outbursts, poor frustration tolerance and poor impulse control plan. At the time of admission, he was planning on killing himself rather than remaining homeless. He repeated at the time of my evaluation initially, that he was still having significant suicide thoughts. He denied review of systems for psychosis, sahil or depression. He had been not refusing to take any his medications and in the past had been on a combination of Remeron, Depakote and Seroquel that helped somewhat. HOSPITAL COURSE: Client was maintained in the ED seclusion room for the three days of his stay. He was detained by the [facility] on a 72 hour involuntary treatment hold. He could not be admitted to our inpatient unit due to vulnerable patients on our unit. No other unit in the state would take him. I saw him on a daily basis and attempted to make an alliance with him. Our ED social media strategist, Nida and Carmen as well met with him on a daily basis, working with him to develop coping skills, to deal with the current stressors and trying to help him identify the stressors. He was belligerent and hostile to any intervention for the first 48 hours. He refused all medications for the first 48 hours. Over the past 24 hours, he has been taking Seroquel 200, 3 times a day and mirtazapine 30 h.s. Last night I received a call from the ER social media strategist, Nida. She stated that the client had obtained housing at his mother's house and was suddenly no longer suicidal and is requesting discharge. She stated that she made a safety plan with him and that the plan was for him to discharge last night, and I was willing to drop the hold given all critical pieces of a safety plan had sounded like were placed. For unclear reasons, client was not discharged last night and I re-evaluated him this morning. Client had neatly dressed and was lying on his couch on his mattress. He got up and was making appropriate eye contact. His behavior was calm. His attitude was cooperative but not pleasant. his speech was of a normal rate and rhythm. Mood was euthymic. Affect was congruent with no emotional liability. Thought process was concrete, but he was able to relate a coherent history and he was able to appreciate simple abstractions. He did not appear to be responding to internal stimuli. No neurovegetative signs of depression. Thought content significant for themes of future planning, how he is going to get housing. a prison and further treatment as an outpatient. He detailed a reasonable safety plan to me. He denied suicidal ideation, plan or intent. His insight and judgment appear to be at baseline. (I have evaluated this patient on multiple different occasions.) His impulse control was contained yet rigid. He has a difficult time handling impulses of hunger and anger. Reality testing was intact and competence to handle stressors currently appeared to be at baseline. DIAGNOSES: AXIS I: 1. Depression, unspecified. 2. Rule out malingering, rule out factitious disorder. 3. Rule out post-traumatic stress disorder. 4. Rule out major depressive disorder. AXIS II: Antisocial traits. AXIS III: None. AXIS IV: Moderate to severe. AXIS V: Current Global Assessment of Functioning equal to 40. DISCHARGE PLAN AND APPOINTMENTS: Client to follow up with [facility], to call him tomorrow, Monday for a check in call. He is to call [facility] on Monday for a 24 hour emergency intake on Monday for therapy and med management. DISCHARGE MEDICATIONS: 1. Remeron 30 h.s. 2. Seroquel 200 t.i.d. 3. Ferrous sulfate 325 daily. ACTIVITY AND DIET: Recommend client refrain from recreational drugs and alcohol while taking psychiatric medications. Recommend he not change medications unless under the supervision of a physician. Recommend he follow up with a safety plan as discussed and follow up with outpatient care. CONDITION ON DISCHARGE: Good. PROGNOSIS: Guarded. Client has poor impulse control, difficulty with social skills and has been hostile to treatment in the past.
== END 2017-03-31 14:32 | disposition home or self-care (01) ==
LOC: SED 15:52
DX: F32.9 Major depressive disorder, single episode, unspecified (principal); R45.851 Suicidal ideations; R46.89 Other symptoms and signs involving appearance and behavior; R45.1 Restlessness and agitation; R45.850 Homicidal ideations; F43.10 Post-traumatic stress disorder, unspecified

== ENCOUNTER 2017-04-03 14:23 | Emergency (ER) | payer MEDICAID, OTHER ==
[~2017-04-03 14:23] MED LIST changes: -MIRT15TA6 PO; +MIRT30TA PO; -MIRT30TA6 PO; +QUET200T PO
[2017-04-03 14:41] VITALS: BP 130/72; PULSE 82; RESP 22; O2SAT 94
--- NOTE | 2017-04-03 18:22 | NUR ---
ED HAIRSPRING STAKER Note: After Visit phone call HAIRSPRING STAKER received a phone call from Pt's [employer] Bartender Maria D ([phone]) from [facility], explaining that she is following pt and is thinking of trying to get a community connector to meet with pt in [facility] or the surrounding [facility]. Pt Logan CHAPMAN would like to be contacted when pt reports to the ED. SHEEBA Siu
== END 2017-04-03 15:50 | disposition left against medical advice (07) ==
LOC: SED 14:23
DX: G47.9 Sleep disorder, unspecified (principal); Z53.29 Procedure and treatment not carried out because of patient's decision for other reasons

== ENCOUNTER 2017-04-06 13:27 | Emergency (ER) | payer OTHER ==
[2017-04-06] MEDS ORDERED: Haloperidol 5 mg/mL Inj IM ONE (13:40)
[2017-04-06] MEDS ORDERED: Haloperidol 5 mg/mL Inj ONE (13:41)
--- NOTE | 2017-04-06 13:44 | ED.REPORT ---
HPI-Psychiatric Illness Date of Service Apr 06, 2017 ED Provider: Juliocesar Fuentes MD A 31 year old male with a history of PTSD, schizophrenia, bipolar disorder, alcohol syndrome and frequent recent ED visits presents to the ED complaining of suicidal and homicidal ideation. The onset and context of these complaints is unclear. The pt rapidly becomes uncooperative in the ED, stating that "he'll start swinging" but "doesn't want to go to skilled nursing," and a code galarza is called. The pt is a level 3 sex offender and is therefore difficult to place. He was recently admitted and DAYANA'd but did not follow up with any of the provided resources. History is limited by pt lack of cooperation. Nursing Notes Stated Complaint: HOMICIDAL/SUICIDAL Chief Complaint: Psychiatric Complaint Nursing Notes Reviewed: Yes (Gloss48 not reconciled) Allergies: Coded Allergies: No Known Allergies (Unverified , 01/19/17) Scheduled Ferrous Sulfate (Ferrous Sulfate) 325 Mg Tablet 325 MG PO DAILY Hydroxyzine HCl (HydrOXYzine Hcl) 50 Mg Tablet 50 MG PO Q4H Mirtazapine (Remeron) 30 Mg Tablet 30 MG PO HS Ondansetron (Ondansetron) 4 Mg Tablet 4 MG PO Q8H Pantoprazole DR (Pantoprazole DR) 40 Mg Tablet.dr 40 MG PO DAILY Quetiapine Fumarate (Seroquel) 200 Mg Tablet 200 MG PO TID Sucralfate Susp (Carafate Susp) 1 Gm/10 Ml Oral.susp 1 GM PO QID General Time Seen by MD: 13:39 Chief Complaint Other (Suicidal/homicidal ideation) Hx Obtained From: Patient Arrived By: Walk-in Onset Occurred: Onset unknown Recent Healthcare: Recent doctor visit Risk-Psychiatric Illness Suicide Risk Stratification Suicide Risk Factors - Adult: : Prior psych admission: Substance abuseNo: Alcohol use RF Statements: Risk factors reviewed (not predicted) Past Medical History Past Medical History Notes: Patient with numerous psychiatric visits-according to him is that he more than 60+ visits in recent months to various facilities, recently IT8 at [facility] past several weeks, noncompliant with psychiatric follow-up, after 3 days patient was released-according report is not followed up as requested Past Medical History Hiatal hernias Ulcers PTSD Depression alcohol syndrome Bipolar disorder Anxiety Schizophrenia Past Surgical History None reported. Family History Denies Smoking History Never Smoker Social History Level 3 sex offender Alcohol Use: Denies alcohol use Drug Use: THC Other Social History: Lives with parents Ambulatory Status Independent Review of Systems Unable to Obtain ROS Uncooperative Physical Exam Initial Vital Signs Vital Signs (First) Date Time Temp Pulse Resp B/P Pulse Ox O2 Delivery O2 Flow Rate FiO2 04/07/17 10:24 36.4 92 18 96/62 99 Room Air see paper chart Initial VS: Reviewed, Unavailable (None on chart, Patient combative) General/Constitutional: Awake, Alert screaming combative threatening staff Neurologic: Speech NL, No motor deficits, No sensory deficits Head / Eyes: Atraumatic, Normocephalic, PERRL, EOMI ENT: Atraumatic, Airway patent, Mucous membranes moist Respiratory / Chest: Breath sounds NL, Breath sounds = bilat, No respiratory distress Cardiovascular: Heart rate NL, Regular rhythm, Heart sounds NL Abdomen: Atraumatic, Soft, Non-tender Skin: Color NL, No rash, Warm, Dry no cutting swann no signs of track swann superficial abrasion, right flank Neck: Supple, Full range of motion Back: Full range of motion Upper Extremity / MS: Atraumatic, Full range of motion Lower Extremity / Pelvis / MS: Atraumatic, Full range of motion Interpretation & Diagnostics Lab Results Interpretation Test 04/06/17 13:40 04/06/17 14:25 04/07/17 05:10 Alcohols < 10mg/dL (0-10) White Blood Count 5.9th/mm3 (3.8-10.1) Red Blood Count 4.56mil/mm3 (4.40-5.80) Hemoglobin 10.7g/dL (13.8-17.2) Hematocrit 33.2% (41.0-50.0) Mean Corpuscular Volume 72.8fL (81-100) Mean Corpuscular Hemoglobin 23.5pg (27.0-35.0) Mean Corpuscular Hemoglobin Concent 32.2% (32.0-37.0) Red Cell Distribution Width 19.3% (12.3-15.4) Platelet Count 354bil/L (150-400) Neutrophils (%) (Auto) 60.1% (40-74) Lymphocytes (%) (Auto) 24.4% (14-46) Monocytes (%) (Auto) 11.9% (4-12) Eosinophils (%) (Auto) 2.9% (0-5) Basophils (%) (Auto) 0.7% (0-3) Sodium Level 140mEq/L (134-144) Potassium Level 3.8mEq/L (3.5-5.2) Chloride Level 105mEq/L (97-108) Carbon Dioxide Level 20mmol/L (18-29) Blood Urea Nitrogen 9mg/dL (6-20) Creatinine 0.81mg/dL (0.76-1.27) Estimat Glomerular Filtration Rate 120mL/min (>59) Glucose Level 130mg/dL (60-99) Calcium Level 9.2mg/dL (8.5-10.1) Total Bilirubin 0.2mg/dL (0.0-1.2) Aspartate Amino Transf (AST/SGOT) 22U/L (0-50) Alanine Aminotransferase (ALT/SGPT) 15U/L (0-44) Alkaline Phosphatase 77U/L (25-150) Total Protein 6.6g/dL (6.4-8.4) Albumin 4.3g/dL (3.4-5.0) Thyroid Stimulating Hormone (TSH) 1.430uIU/mL (0.450-4.500) Hold Urine Received (Received) Lab Results Interpretation: CBC normal CMP normal Alcohol 0 U tox pending Re-Eval/Medical Decision Med Decision/Clinical Course This is a 31-year-old male who presented by himself, and then rapidly escalated with threatening agitated behavior, talking about suicide and homicide, extremely agitated and threatening staff requiring a code galarza. We got him into the psychiatric room, the patient continued to talk about becoming violent , and required chemical sedation. I was not able to interview him as a result of his level of agitation and threats, but was able to examine him after sedation. The patient's been recently admitted for psychiatric care and was DAYANA'd within recent weeks, then released. Apparently has a long psychiatric history. He has thus far not provided urine sample. Screening baseline labs obtained and are normal. Alcohol is normal. The patient is being turned over to oncoming provider at the change of shift for reevaluation and management. Source of Hx: Old records Re-Evaluation/Progress #1: Time of Eval: 13:39 Re-Evaluation/Progress Note: Face to face evaluation performed. Pt is combative and threatening staff and is medically sedated. Re-Evaluation/Progress #2: Time of Eval: 15:12 Patient Status: Condition improved Re-Evaluation/Progress Note: Pt rechecked, who is sleeping. Further physical evaluation is perfomed. Re-Evaluation/Progress #3: Time of Eval: 02:01 Re-Evaluation/Progress Note: Has been resting/sedated since I assumed care at 1800. Still has not provided urine. Will hold for social services counselor eval in am. To Dr Rodrigues at 0200. Re-Evaluation/Progress #4: Time of Eval: 04:51 Re-Evaluation/Progress Note: Pt rechecked by Dr. Messina. He was awake, but still clearly under effect of his anti-psychotic medication. Re-Evaluation/Progress #5: Time of Eval: 06:10 Re-Evaluation/Progress Note: By Dr Pastor face to face eval. Isolation placed. Differential Diagnosis: Positive: Homicidal, Suicidal Counseled Regarding: Diagnosis, Lab results Discharge & Departure Shift Change Sign-Out Patient Care Transferred: Yes Discussed Complaint(s): Yes Laboratory Evaluation: Lab evaluation discussed Impression: Primary Impression: Combative behavior Additional Impression: Homicidal ideation Discharge Condition All VS Reviewed: Yes Condition: Stable Referrals: SKYLER PECK MD (PCP) Care Transferred to: Dr. Mae Care Transferred at: 18:00 EDSupervising Provider for APC: Kenneth Pastor MD Scribe Attestation Portions of this note were transcribed by Radha Zazueta and Maribeth Doan. I, Dr. Fuentes personally performed the history, physical exam and medical decision -making; I reviewed and confirmed the accuracy of the information in the transcribed note. Attending Statement Patient signed out to me by Dr. Messina pending disposition. Patient was very agitated and swung at one of the staff. He was placed in seclusion. He was given Ativan and Zyprexa. He was observed for many hours and regained his baseline. He denied any suicidal ideation or homicidal ideation. He was provided by social services aide who recommended he be discharged home with follow-up with his mental health professional today. He was given a cab ride there to his appointment. Advised to return if any thoughts of hurting himself or others. . copies to: SKYLER PECK MD, Matthew F MD Apr 06, 2017 13:44 RADHA ZAZUETA Apr 06, 2017 14:05 Patricio Mae MD Apr 07, 2017 02:02 Maribeth Doan Apr 07, 2017 05:04 Nitesh Messina MD Apr 07, 2017 06:25 Kenneth Pastor MD Apr 07, 2017 07:44 Patricio Mae MD Apr 07, 2017 02:02 Maribeth Doan Apr 07, 2017 05:04 Nitesh Messina MD Apr 07, 2017 06:25 Kenneth Pastor MD Apr 07, 2017 07:44 Kenneth Pastor MD Apr 07, 2017 07:44
[2017-04-06 14:28] LABS: BASOPHILS % (AUTO) 0.7 % (0-3); EOSINOPHILS % (AUTO) 2.9 % (0-5); MONOCYTES % (AUTO) 11.9 % (4-12); Mean Corpuscular Hemoglobin 23.5 pg (27.0-35.0); Mean Corpuscular Volume 72.8 fL (81-100); NEUTROPHILS % (AUTO) 60.1 % (40-74); Platelet Count 354 bil/L (150-400)
[2017-04-07 10:24] VITALS: BP 96/62; PULSE 92; RESP 18; O2SAT 99
--- NOTE | 2017-04-07 14:49 | PCM.EDPN ---
ED Note Date of Service Apr 07, 2017 ED Attending Statement This is an addendum to the note by Dr. Fuentes for the same admission. The patient was signed out to me pending BIBLE WORKER evaluation. I was unable to sign note as it was not signed. fabric lay out worker evaluated the patient patient was no longer suicidal or homicidal. They deemed to be safe for discharge home with follow-up with his social work nurse today. Patient was given a cab to that appointment. Kenneth Pastor MD Apr 07, 2017 14:48
== END 2017-04-07 13:53 | disposition home or self-care (01) ==
LOC: SED 13:27
DX: R46.89 Other symptoms and signs involving appearance and behavior (principal); R45.850 Homicidal ideations; F41.8 Other specified anxiety disorders; F20.9 Schizophrenia, unspecified; F31.9 Bipolar disorder, unspecified
CPT/HCPCS: 36415; 80053; 81002; 84443; 85025; 90791; 96372; 99285; G0480; J1200; J1630; J2060; S0166

== ENCOUNTER → 2017-04-15 | Emergency (ER) | payer OTHER ==
[~2017-04-15] VITALS: Ht 170.2 cm; Wt 61.4 kg
[2017-04-15 12:44] VITALS: BP 111/55; PULSE 93; RESP 18; O2SAT 96
--- NOTE | 2017-04-15 12:56 | ED.REPORT ---
HPI-Psychiatric Illness Date of Service Apr 15, 2017 ED Provider: Kenneth Pastor MD A 31 year old male with a history of PTSD, depression, alcohol syndrome, bipolar disorder, anxiety, schizophrenia and numerous visits to various facilities for psychiatric complaints is brought to the ED by [place] police for a psychiatric evaluation. The pt was reportedly arguing with people in public and requesting different medications, stating that he is "having bad thoughts." He has a history of noncompliance with medications and psychiatric follow up. However the pt has eloped from the department prior to being evaluated by a physician. Nursing Notes Stated Complaint: PSYCH EVAL Chief Complaint: Psychiatric Complaint Nursing Notes Reviewed: Yes Allergies: Coded Allergies: No Known Allergies (Unverified , 01/19/17) Scheduled Ferrous Sulfate (Ferrous Sulfate) 325 Mg Tablet 325 MG PO DAILY Hydroxyzine HCl (HydrOXYzine Hcl) 50 Mg Tablet 50 MG PO Q4H Mirtazapine (Remeron) 30 Mg Tablet 30 MG PO HS Ondansetron (Ondansetron) 4 Mg Tablet 4 MG PO Q8H Pantoprazole DR (Pantoprazole DR) 40 Mg Tablet.dr 40 MG PO DAILY Quetiapine Fumarate (Seroquel) 200 Mg Tablet 200 MG PO TID Sucralfate Susp (Carafate Susp) 1 Gm/10 Ml Oral.susp 1 GM PO QID General Time Seen by MD: 12:54 Chief Complaint Other (Psychiatric evaluation) Hx Obtained From: Patient, Police Arrived By: Police Symptom Duration: Since onset Recent Healthcare: Recent doctor visit, Recent hospitalization Similar Sx Previous: Yes Risk-Psychiatric Illness Suicide Risk Stratification Suicide Risk Factors - Adult: : Prior psych admission RF Statements: Risk factors reviewed Past Medical History Past Medical History Notes: Patient with numerous psychiatric visits-according to him is that he more than 60+ visits in recent months to various facilities, recently DAYANA'd at [facility] past several weeks, noncompliant with psychiatric follow-up, after 3 days patient was released-according report is not followed up as requested Past Medical History Hiatal hernias Ulcers PTSD Depression alcohol syndrome Bipolar disorder Anxiety Schizophrenia Past Surgical History None reported. Family History Denies Smoking History Former Smoker Social History Level 3 sex offender Alcohol Use: Denies alcohol use Drug Use: THC Other Social History: Lives with parents Ambulatory Status Independent Review of Systems Unable to Obtain ROS Uncooperative Physical Exam Pt eloped from the department prior to being evaluated by a physician. No physical exam is performed. Initial Vital Signs Vital Signs (First) Date Time Temp Pulse Resp B/P Pulse Ox O2 Delivery O2 Flow Rate FiO2 04/15/17 12:44 36.7 93 18 111/55 96 Room Air Initial VS: Reviewed Re-Eval/Medical Decision Med Decision/Clinical Course 31-year-old male with history of psychosis who presented requesting medication changes. He was evaluated by the aids social worker. He eloped prior to my evaluation. He was in the department for less than 20 minutes. Source of Hx: Old records Re-Evaluation/Progress : Time of Eval: 13:08 Re-Evaluation/Progress Note: Pt has eloped from the department prior to being evaluated. Consultation : Call Returned at: 13:00 Manager Culinary: Agrees with plan Note: Spoke with aids social worker regarding pt's case. Recent pt history is obtained from aids social worker. Discharge & Departure Impression: Primary Impression: Acute situational disturbance Disposition: LEFT WITHOUT BEING SEEN Discharge Condition All VS Reviewed: Yes Condition: Stable Referrals: SKYLER PECK MD (PCP) Scribe Attestation Portions of this note were transcribed by Radha Zazueta. I, Dr. Pastor personally performed the history, physical exam and medical decision-making; I reviewed and confirmed the accuracy of the information in the transcribed note. copies to: SKYLER PECK MD, Ben M MD Apr 15, 2017 12:55 RADHA ZAZUETA Apr 15, 2017 13:43
== END | disposition home or self-care (01) ==
LOC: SED 12:41
DX: F43.0 Acute stress reaction (principal); F31.9 Bipolar disorder, unspecified; F41.8 Other specified anxiety disorders; F20.9 Schizophrenia, unspecified; Z87.891 Personal history of nicotine dependence; Z91.14 Patient's other noncompliance with medication regimen; Z53.29 Procedure and treatment not carried out because of patient's decision for other reasons